=== PATIENT | male | born 1965 | race African-American/Black ===

== ENCOUNTER 2017-02-13 10:44 | Inpatient (IN) | payer BC, OTHER ==
[2017-02-13 11:00] VITALS: BMI 20.2
--- NOTE | 2017-02-13 13:42 | HP ---
CIWA Score - CIWA Score Nausea/Vomitin-No Nausea/No Vomiting Muscle Tremors: 4-Moderate,w/Arms Extend Anxiety: 4-Mod. Anxious/Guarded Agitation: 4-Moderately Restless Paroxysmal Sweats: 1-Minimal Palms Moist Orientation: 0-Oriented Tacttile Disturbances: 3-Moderate Itch/Numb/Burn Auditory Disturbances: 0-None Visual Disturbances: 0-None Headache: 0-None Present CIWA-Ar Total Score: 16 Admission ROS BHS - HPI Chief Complaint: DETOX TX FOR ALCOHOL DEPENDENC NOTE: DENIES USE OF OPIATES. PT STATES ADULTERATION OF HIS DRUGS OF CHOICE. Allergies/Adverse Reactions: Allergies Allergy/AdvReac Type Severity Reaction Status Date / Time No Known Allergies Allergy Verified 02/13/17 12:16 History of Present Illness: 51 Y/O AA/MALE WITH A HX OF ALCOHOL DEPENDENCE SEEKING DETOX TX. FIRST TIME IN TREATMENT. Exam Limitations: No Limitations - Ebola screening Have you traveled outside of the country in the last 21 days: No Have you had contact with anyone from an Ebola affected area: No Have you been sick,other than usual withdrawal symptoms: No Do you have a fever: No - Review of Systems Constitutional: Chills, Night Sweats, Changes in sleep, Unintentional Wgt. Loss EENT: reports: Blurred Vision, Tearing, Nose Congestion, Dental Problems ( MISSING TEETH) Respiratory: reports: No Symptoms reported Cardiac: reports: No Symptoms Reported GI: reports: No Symptoms Reported : reports: No Symptoms Reported Musculoskeletal: reports: No Symptoms Reported (HAND JOINTS), Joint Pain Integumentary: reports: No Symptoms Reported Neuro: reports: Numbness, Tingling, Tremors, Unsteady Gait, Dizziness Endocrine: reports: No Symptoms Reported Hematology: reports: No Symptoms Reported Psychiatric: reports: Orientated x3, Anxious Other Systems: Reviewed and Negative Patient History - Patient Medical History Hx Anemia: No Hx Asthma: No Hx Chronic Obstructive Pulmonary Disease (COPD): No Hx Cardiac Disorders: No Hx Hypertension: No Hx Hypercholesterolemia: No HX Cerebrovascular Accident: No Hx Seizures: No Hx Diabetes: No Hx Gastrointestinal Disorders: No Hx Genitourinary Disorders: No Hx Sexually Transmitted Disorders: Yes (gonorrhea) Hx Renal Disease (ESRD): No Hx Thyroid Disease: No Hx Human Immunodeficiency Virus (HIV): No (NEGATIVE HX) Hx Hepatitis C: No Hx Depression: No (BUT USES PCP) Hx Suicide Attempt: No (DENIES) Hx Bipolar Disorder: No Hx Schizophrenia: No - Patient Surgical History Past Surgical History: No Hx Neurologic Surgery: No Hx Cataract Extraction: No Hx Cardiac Surgery: No Hx Lung Surgery: No Hx Breast Surgery: No Hx Breast Biopsy: No Hx Abdominal Surgery: No Hx Appendectomy: No Hx Cholecystectomy: No Hx Genitourinary Surgery: No Hx Orthopedic Surgery: No Anesthesia Reaction: No - PPD History Previous Implant?: Yes Documented Results: Negative w/o proof Implanted On Prior R Admission?: No PPD to be Administered?: Yes - Reproductive History Patient is a Female of Child Bearing Age (11 -55 yrs old): No (MALE) - Smoking Cessation Smoking history: Current every day smoker Have you smoked in the past 12 months: Yes Aproximately how many cigarettes per day: 20 Hx Chewing Tobacco Use: No Initiated information on smoking cessation: Yes 'Breaking Loose' booklet given: 02/13/17 - Substance & Tx. History Hx Alcohol Use: Yes (COGNAC/BEER) Hx Substance Use: Yes (K2/MARIJUANA/PCP) Substance Use Type: Alcohol, Marijuana (K2) Hx Substance Use Treatment: No (STATES NEVER IN TREATMENT) - Substances Abused PCP Route: Smoking Frequency: Daily Amount used: $30 Age of first use: 14 Date of Last Use: 02/12/17 Alcohol-cognac/beer Route: Oral Frequency: Daily Amount used: 2 pts./1-6 pk. Age of first use: 14 Date of Last Use: 02/12/17 k2 Route: Smoking Frequency: Daily Amount used: $25-30 Age of first use: 41 Date of Last Use: 02/12/17 Marijuana Route: Smoking Frequency: 3-6 times per week Amount used: $10 Age of first use: 14 Date of Last Use: 02/11/17 Family Disease History - Family Disease History Family History: Denies Admission Physical Exam BHS - Vital Signs Vital Signs: Vital Signs - 24 hr 02/13/17 10:56 Temperature 97 F L Pulse Rate 74 Respiratory 20 Rate Blood Pressure 103/71 - Physical General Appearance: Yes: Moderate Distress, Thin, Irritable, Anxious HEENTM: Yes: EOMI, Normocephalic, LISS, Pharynx Normal Respiratory: Yes: Chest Non-Tender, Lungs Clear, Normal Breath Sounds, No Respiratory Distress Neck: Yes: Supple, Trachea in good position Breast: Yes: Breast Exam Deferred Cardiology: Yes: Regular Rhythm, Regular Rate, S1, S2 Abdominal: Yes: Normal Bowel Sounds, Non Tender, Flat, Soft Genitourinary: Yes: Other (N/C) Back: Yes: Within Normal Limits Musculoskeletal: Yes: full range of Motion, Gait Steady Extremities: Yes: Normal Range of Motion, Non-Tender Neurological: Yes: continuous improvement director II-XII NML intact, Fully Oriented, Alert, Motor Strength 5/5 Integumentary: Yes: Dry, Warm Lymphatic: Yes: Within Normal Limits - Diagnostic (1) Alcohol dependence with uncomplicated withdrawal Current Visit: Yes Status: Acute (2) PCP dependence Current Visit: Yes Status: Acute Cleared for Admission [facility] - Detox or Rehab [facility] Level of Care: Medically Managed Detox Regimen/Protocol: Librium [facility] Breath Alcohol Content Breath Alcohol Content: 0 Urine Drug Screen - Results Drug Screen Negative: No Urine Drug Screen Results: OPI-Opiates, PCP-Phencyclidine
[2017-02-13] MEDS ORDERED: MENTHOL/PHENOL 1 EACH UD MM PRN (13:48)
[2017-02-13] MEDS ORDERED: LOPERAMIDE HCL 2 MG CAPSULE PO PRN (13:48)
[2017-02-13] MEDS ORDERED: MAG HYDROX/AL HYDROX/SIMETH 30 ML UNIT-DOSE CUP PO PRN (13:48)
[2017-02-13] MEDS ORDERED: chlordiazePOXIDE HCL 25 MG CAPSULE PO PRN (13:48)
[2017-02-13] MEDS ORDERED: MAGNESIUM CITRATE 300 ML BOTTLE PO PRN (13:48)
[2017-02-13] MEDS ORDERED: P-EPHED 60MG/TRIPROLIDI 2.5MG TABLET PO PRN (13:48)
[2017-02-13] MEDS ORDERED: diphenhydrAMINE HCL 50 MG CAPSULE PO PRN (13:48)
[2017-02-13] MEDS ORDERED: ACETAMINOPHEN 325 MG TABLET (FP) PO PRN (13:48)
[2017-02-13] MEDS ORDERED: NICOTINE POLACRILEX 4 MG GUM BUC PRN (13:48)
[2017-02-13] MEDS ORDERED: hydrOXYzine PAMOATE 25 MG CAPSULE (FP) PO PRN (13:48)
[2017-02-13] MEDS ORDERED: IBUPROFEN 400 MG TABLET (FP) PO PRN (13:48)
[2017-02-13] MEDS ORDERED: MAGNESIUM HYDROX 2400MG/30ML ORAL SUSPENSION 30 ML CUP PO PRN (13:48)
[2017-02-13] MEDS ORDERED: guaiFENesin/D-METHORPHAN HB 10 ML UNIT-DOSE CUPS PO PRN (13:48)
[2017-02-13] MEDS ORDERED: chlordiazePOXIDE HCL 25 MG CAPSULE PO ONE (14:44)
[2017-02-13] MEDS: NICOTINE 21 MG/24 HOURS TOPICAL PATCH TD SCH (15:03)
[2017-02-13] MEDS: chlordiazePOXIDE HCL 25 MG CAPSULE PO SCH ×2 (17:52→22:08)
[2017-02-13 19:57] LABS: URINE APPEARANCE CLEAR; URINE BILIRUBIN NEGATIVE (NEGATIVE); URINE BLOOD NEGATIVE (NEGATIVE); URINE COLOR YELLOW; URINE GLUCOSE (UA) 1+ (NEGATIVE); URINE KETONE NEGATIVE (NEGATIVE); URINE LEUK ESTERASE NEGATIVE (NEGATIVE); URINE NITRITE NEGATIVE (NEGATIVE); URINE PROTEIN NEGATIVE (NEGATIVE); URINE UROBILINOGEN NEGATIVE E.U./dl (0.2-1.0)
[2017-02-13] MEDS: THIAMINE HCL 100 MG TABLET (FP) PO SCH (22:08)
[2017-02-14] MEDS: chlordiazePOXIDE HCL 25 MG CAPSULE PO SCH ×4 (06:23→22:17)
[2017-02-14] MEDS: NICOTINE 21 MG/24 HOURS TOPICAL PATCH TD SCH (10:12)
[2017-02-14] MEDS: PRENATAL VITAMINS W/ FOLIC ACID TABLET (FP) PO SCH (10:12)
[2017-02-14 10:48] LABS: MCH 34.3 pg (25.7-33.7); MCHC 32.9 g/dl (32.0-35.9); MEAN CELL VOLUME 104.3 fl (80-96); MEAN PLT VOLUME 9.3 fl (7.5-11.1); PLATELET COUNT 241 K/MM3 (134-434); RDW 14.7 % (11.9-15.9); WHITE BLOOD COUNT 6.3 K/mm3 (4.0-10.0)
[2017-02-14 11:14] LABS: SICKLE CELL SCREEN NEGATIVE (NEGATIVE)
[2017-02-14 12:05] LABS: ALBUMIN 3.5 g/dl (3.4-5.0); ALK PHOS 53 U/L (45-117); ANION GAP 10 (8-16); BILIRUBIN,TOTAL 0.3 mg/dL (0.2-1.0); CALCIUM 8.8 mg/dL (8.5-10.1); CO2 24 mmol/L (21-32); CREATININE 0.9 mg/dL (0.7-1.3); GLUCOSE,RANDOM 78 mg/dL (74-106); SGOT/AST 9 U/L (15-37); SGPT/ALT 14 U/L (12-78); TOT PROT 7.1 g/dl (6.4-8.2)
--- NOTE | 2017-02-14 13:02 | CONSULT ---
[facility] Psychiatric Consult - Data Date of interview: 02/14/17 Admission source: [facility] Identifying data: Readmission to [facility] for this 51 y/o AA male seeking detox treatment for alcohol,marijuana (K2) and phncyclidine dependence.Patient is ,father of three,homeless,unemployed and supported on SSI benefits. Substance Abuse History: - Smoking Cessation. Smoking history: Current every day smoker. Have you smoked in the past 12 months: Yes. Aproximately how many cigarettes per day: 20. Hx Chewing Tobacco Use: No. Initiated information on smoking cessation: Yes. 'Breaking Loose' booklet given: 02/13/17. - Substance & Tx. History. Hx Alcohol Use: Yes (COGNAC/BEER). Hx Substance Use: Yes (K2/ MARIJUANA/PCP). Substance Use Type: Alcohol, Marijuana (K2). Hx Substance Use Treatment: No (STATES NEVER IN TREATMENT). - Substances Abused. PCP. Route : Smoking. Frequency: Daily. Amount used: $30. Age of first use: 14. Date of Last Use: 02/12/17. Alcohol-cognac/beer. Route: Oral. Frequency: Daily. Amount used: 2 pts./1-6 pk. Age of first use: 14. Date of Last Use: . k2. Route: Smoking. Frequency: Daily. Amount used: $25-30. Age of first use: 41. Date of Last Use: 02/12/17. Marijuana. Route: Smoking. Frequency: 3-6 times per week. Amount used: $10. Age of first use: 14. Date of Last Use: 02/11/17. Confirmed by patient. Medical History: Noted past history of treatment for syphilis. Psychiatric History: Patient denies. Physical/Sexual Abuse/Trauma History: Patient denies. Additional Comment: Urine Drug Screen Results: OPI-Opiates, PCP- Phencyclidine.Noted. Mental Status Exam - Mental Status Exam Alert and Oriented to: Time, Place, Person Cognitive Function: Good Patient Appearance: Well Groomed Mood: Hopeful, Euthymic Affect: Appropriate, Normal Range Patient Behavior: Fatigued, Appropriate, Cooperative Speech Pattern: Clear Voice Loudness: Normal Thought Process: Goal Oriented Thought Disorder: Not Present Hallucinations: Denies Suicidal Ideation: Denies Homicidal Ideation: Denies Insight/Judgement: Fair Sleep: Fair Appetite: Good Muscle strength/Tone: Normal Gait/Station: Normal Psychiatric Findings - Problem List ([place] 1, 2,3) (1) Alcohol dependence with uncomplicated withdrawal Current Visit: Yes Status: Acute (2) PCP dependence Current Visit: Yes Status: Acute - Initial Treatment Plan Initial Treatment Plan: Psychoeducation.Detoxification.Observation.
--- NOTE | 2017-02-14 15:15 | PN ---
[facility] CIWA - CIWA Score Nausea/Vomitin-Mild Nausea/No Vomiting Muscle Tremors: 2 Anxiety: 3 Agitation: 1-Slight > Activity Paroxysmal Sweats: 3 Orientation: 0-Oriented Tacttile Disturbances: 2-Mild Itch/Numbness/Burn Auditory Disturbances: 3-Moderate Harsh/Frighten Visual Disturbances: 1-Very Mild Sensitivity Headache: 0-None Present CIWA-Ar Total Score: 16 S Progress Note (SOAP) Subjective: Sweating, Diarrhea, Interrupted sleep, Tremors. Objective: PT. A & O X 3. 02/14/17 15:13 Vital Signs Temperature 95.8 F L 02/14/17 13:15 Pulse Rate 66 02/14/17 13:15 Respiratory Rate 19 02/14/17 13:15 Blood Pressure 115/78 02/14/17 13:15 O2 Sat by Pulse Oximetry (%) Laboratory Last Values WBC 6.3 K/mm3 (4.0-10.0) 02/14/17 06:00 RBC 4.11 M/mm3 (4.00-5.60) 02/14/17 06:00 Hgb 14.1 GM/dL (11.7-16.9) 02/14/17 06:00 Hct 42.9 % (35.4-49) 02/14/17 06:00 MCV 104.3 fl (80-96) H 02/14/17 06:00 MCHC 32.9 g/dl (32.0-35.9) 02/14/17 06:00 RDW 14.7 % (11.9-15.9) 02/14/17 06:00 Plt Count 241 K/MM3 (134-434) 02/14/17 06:00 MPV 9.3 fl (7.5-11.1) 02/14/17 06:00 Sickle Cell Screen Negative (NEGATIVE) 02/14/17 06:00 Sodium 143 mmol/L (136-145) 02/14/17 06:00 Potassium 4.2 mmol/L (3.5-5.1) 02/14/17 06:00 Chloride 109 mmol/L (98-107) H 02/14/17 06:00 Carbon Dioxide 24 mmol/L (21-32) 02/14/17 06:00 Anion Gap 10 (8-16) 02/14/17 06:00 BUN 11 mg/dL (7-18) 02/14/17 06:00 Creatinine 0.9 mg/dL (0.7-1.3) 02/14/17 06:00 Creat Clearance w eGFR > 60 (>60) 02/14/17 06:00 Random Glucose 78 mg/dL (74-106) 02/14/17 06:00 Calcium 8.8 mg/dL (8.5-10.1) 02/14/17 06:00 Total Bilirubin 0.3 mg/dL (0.2-1.0) 02/14/17 06:00 AST 9 U/L (15-37) L 02/14/17 06:00 ALT 14 U/L (12-78) 02/14/17 06:00 Alkaline Phosphatase 53 U/L (45-117) 02/14/17 06:00 Total Protein 7.1 g/dl (6.4-8.2) 02/14/17 06:00 Albumin 3.5 g/dl (3.4-5.0) 02/14/17 06:00 Urine Color Yellow 02/13/17 19:36 Urine Appearance Clear 02/13/17 19:36 Urine pH 6.0 (5.0-8.0) 02/13/17 19:36 Ur Specific [place] 1.029 (1.001-1.035) 02/13/17 19:36 Urine Protein Negative (NEGATIVE) 02/13/17 19:36 Urine Glucose (UA) 1+ (NEGATIVE) H 02/13/17 19:36 Urine Ketones Negative (NEGATIVE) 02/13/17 19:36 Urine Blood Negative (NEGATIVE) 02/13/17 19:36 Urine Nitrite Negative (NEGATIVE) 02/13/17 19:36 Urine Bilirubin Negative (NEGATIVE) 02/13/17 19:36 Urine Urobilinogen Negative E.U./dl (0.2-1.0) 02/13/17 19:36 Ur Leukocyte Esterase Negative (NEGATIVE) 02/13/17 19:36 LABS NOTED. Assessment: 02/14/17 15:14 WITHDRAWAL SYMPTOMS. Plan: CONTINUE DETOX. ADVISED PATIENT TO FOLLOW-UP WITH [facility] / REHAB MEDICAL PROVIDER AFTER DISCHARGE FROM DETOX FOR GENERAL MEDICAL ASSESSMENT AND FOR ANY ABNORMAL ADMISSION LAB VALUES.
[2017-02-14] MEDS: THIAMINE HCL 100 MG TABLET (FP) PO SCH (22:17)
[2017-02-15] MEDS: chlordiazePOXIDE HCL 25 MG CAPSULE PO SCH ×2 (05:51→10:10)
[2017-02-15] MEDS: PRENATAL VITAMINS W/ FOLIC ACID TABLET (FP) PO SCH (10:09)
[2017-02-15] MEDS: NICOTINE 21 MG/24 HOURS TOPICAL PATCH TD SCH (10:11)
--- NOTE | 2017-02-15 10:45 | PN ---
S CIWA - CIWA Score Nausea/Vomitin Muscle Tremors: 3 Anxiety: 4-Mod. Anxious/Guarded Agitation: 3 Paroxysmal Sweats: 3 Orientation: 0-Oriented Tacttile Disturbances: 1-Very Mild Itch/Numbness Auditory Disturbances: 0-None Visual Disturbances: 0-None Headache: 1-Very Mild CIWA-Ar Total Score: 18 BHS Progress Note (SOAP) Subjective: Nausea, anxious, sweating, tremor Objective: 02/15/17 10:41 Last Vital Signs Temp Pulse Resp BP Pulse Ox 98.4 F 68 18 138/95 02/14/17 21:52 02/14/17 21:52 02/15/17 03:30 02/14/17 21:52 Laboratory Tests 02/13/17 02/14/17 02/14/17 19:36 06:00 06:00 WBC 6.3 RBC 4.11 Hgb 14.1 Hct 42.9 MCV 104.3 H MCHC 32.9 RDW 14.7 Plt Count 241 MPV 9.3 Sickle Cell Screen Negative Sodium 143 Potassium 4.2 Chloride 109 H Carbon Dioxide 24 Anion Gap 10 BUN 11 Creatinine 0.9 Creat Clearance w eGFR > 60 Random Glucose 78 Calcium 8.8 Total Bilirubin 0.3 AST 9 L ALT 14 Alkaline Phosphatase 53 Total Protein 7.1 Albumin 3.5 Urine Color Yellow Urine Appearance Clear Urine pH 6.0 Ur Specific [place] 1.029 Urine Protein Negative Urine Glucose (UA) 1+ H Urine Ketones Negative Urine Blood Negative Urine Nitrite Negative Urine Bilirubin Negative Urine Urobilinogen Negative Ur Leukocyte Esterase Negative RPR Titer 02/14/17 06:00 WBC RBC Hgb Hct MCV MCHC RDW Plt Count MPV Sickle Cell Screen Sodium Potassium Chloride Carbon Dioxide Anion Gap BUN Creatinine Creat Clearance w eGFR Random Glucose Calcium Total Bilirubin AST ALT Alkaline Phosphatase Total Protein Albumin Urine Color Urine Appearance Urine pH Ur Specific [place] Urine Protein Urine Glucose (UA) Urine Ketones Urine Blood Urine Nitrite Urine Bilirubin Urine Urobilinogen Ur Leukocyte Esterase RPR Titer Nonreactive Labs noted: UA shows glucose 1+ Assessment: 02/15/17 10:43 Withdrawal symptoms Noted with mild glycosuria but normal fasting serum glucose of 78 mg/dl Plan: Continue detox Glycosuria: encouraged to drink lots of water (at least 6-8 cups/day), repeat UA
--- NOTE | 2017-02-15 11:41 | EKG ---
Test Reason : Blood Pressure : / mmHG Vent. Rate : 063 BPM Atrial Rate : 063 BPM P-R Int : 116 ms QRS Dur : 100 ms QT Int : 404 ms P-R-T Axes : 060 063 062 degrees QTc Int : 413 ms NORMAL SINUS RHYTHM WITH SINUS ARRHYTHMIA NORMAL ECG NO PREVIOUS ECGS AVAILABLE Confirmed by OVIDIO DANIEL MD ([id number]) on 02/15/2017 11:40:50 AM Referred By: Confirmed By:OVIDIO DANIEL MD
[2017-02-15] MEDS: chlordiazePOXIDE 5 MG CAPSULE PO SCH ×2 (17:22→22:34)
[2017-02-15] MEDS: THIAMINE HCL 100 MG TABLET (FP) PO SCH (22:34)
[2017-02-16] MEDS: chlordiazePOXIDE 5 MG CAPSULE PO SCH ×2 (05:49→10:14)
[2017-02-16] MEDS: NICOTINE 21 MG/24 HOURS TOPICAL PATCH TD SCH (10:14)
[2017-02-16] MEDS: PRENATAL VITAMINS W/ FOLIC ACID TABLET (FP) PO SCH (10:14)
--- NOTE | 2017-02-16 13:17 | PN ---
BHS Progress Note (SOAP) Subjective: Sweating,interrupted sleep,restless Objective: 02/16/17 13:16 Vital Signs - 8 hr 02/16/17 02/16/17 06:22 09:44 Temperature 96.1 F L 97.1 F L Pulse Rate 64 69 Respiratory 16 18 Rate Blood Pressure 116/76 130/79 Laboratory Tests 02/13/17 02/14/17 02/14/17 19:36 06:00 06:00 WBC 6.3 RBC 4.11 Hgb 14.1 Hct 42.9 MCV 104.3 H MCHC 32.9 RDW 14.7 Plt Count 241 MPV 9.3 Sickle Cell Screen Negative Sodium 143 Potassium 4.2 Chloride 109 H Carbon Dioxide 24 Anion Gap 10 BUN 11 Creatinine 0.9 Creat Clearance w eGFR > 60 Random Glucose 78 Calcium 8.8 Total Bilirubin 0.3 AST 9 L ALT 14 Alkaline Phosphatase 53 Total Protein 7.1 Albumin 3.5 Urine Color Yellow Urine Appearance Clear Urine pH 6.0 Ur Specific [place] 1.029 Urine Protein Negative Urine Glucose (UA) 1+ H Urine Ketones Negative Urine Blood Negative Urine Nitrite Negative Urine Bilirubin Negative Urine Urobilinogen Negative Ur Leukocyte Esterase Negative RPR Titer 02/14/17 06:00 WBC RBC Hgb Hct MCV MCHC RDW Plt Count MPV Sickle Cell Screen Sodium Potassium Chloride Carbon Dioxide Anion Gap BUN Creatinine Creat Clearance w eGFR Random Glucose Calcium Total Bilirubin AST ALT Alkaline Phosphatase Total Protein Albumin Urine Color Urine Appearance Urine pH Ur Specific [place] Urine Protein Urine Glucose (UA) Urine Ketones Urine Blood Urine Nitrite Urine Bilirubin Urine Urobilinogen Ur Leukocyte Esterase RPR Titer Nonreactive labs noted Assessment: 02/16/17 13:16 Withdrawal sx. Plan: Continue detox
[2017-02-16 15:41] LABS: URINE APPEARANCE CLEAR; URINE BILIRUBIN NEGATIVE (NEGATIVE); URINE BLOOD NEGATIVE (NEGATIVE); URINE COLOR YELLOW; URINE GLUCOSE (UA) NEGATIVE (NEGATIVE); URINE KETONE NEGATIVE (NEGATIVE); URINE LEUK ESTERASE NEGATIVE (NEGATIVE); URINE NITRITE NEGATIVE (NEGATIVE); URINE PROTEIN NEGATIVE (NEGATIVE); URINE UROBILINOGEN NEGATIVE E.U./dl (0.2-1.0)
[2017-02-16] MEDS: chlordiazePOXIDE HCL 10 MG CAPSULE PO SCH ×2 (17:32→23:18)
[2017-02-16] MEDS: THIAMINE HCL 100 MG TABLET (FP) PO SCH (23:18)
[2017-02-17] MEDS: chlordiazePOXIDE HCL 10 MG CAPSULE PO SCH ×2 (06:09→11:02)
--- NOTE | 2017-02-17 10:54 | DS ---
[facility] Detox Discharge Summary Admission Date: 02/13/17 Discharge Date: 02/17/17 - History Present History: Alcohol Dependence, Pcp Dependence Additional Comments: DETOX COMPLETED.ALERT O X 3. NAD. Pertinent Past History: UNREMARKABLE - Physical Exam Results Vital Signs: Vital Signs Temperature 96.0 F L 02/17/17 06:17 Pulse Rate 86 02/17/17 06:17 Respiratory Rate 16 02/17/17 06:17 Blood Pressure 112/72 02/17/17 06:17 O2 Sat by Pulse Oximetry (%) Pertinent Admission Physical Exam Findings: WITHDRAWAL SX Laboratory Last Values WBC 6.3 K/mm3 (4.0-10.0) 02/14/17 06:00 RBC 4.11 M/mm3 (4.00-5.60) 02/14/17 06:00 Hgb 14.1 GM/dL (11.7-16.9) 02/14/17 06:00 Hct 42.9 % (35.4-49) 02/14/17 06:00 MCV 104.3 fl (80-96) H 02/14/17 06:00 MCHC 32.9 g/dl (32.0-35.9) 02/14/17 06:00 RDW 14.7 % (11.9-15.9) 02/14/17 06:00 Plt Count 241 K/MM3 (134-434) 02/14/17 06:00 MPV 9.3 fl (7.5-11.1) 02/14/17 06:00 Sickle Cell Screen Negative (NEGATIVE) 02/14/17 06:00 Sodium 143 mmol/L (136-145) 02/14/17 06:00 Potassium 4.2 mmol/L (3.5-5.1) 02/14/17 06:00 Chloride 109 mmol/L (98-107) H 02/14/17 06:00 Carbon Dioxide 24 mmol/L (21-32) 02/14/17 06:00 Anion Gap 10 (8-16) 02/14/17 06:00 BUN 11 mg/dL (7-18) 02/14/17 06:00 Creatinine 0.9 mg/dL (0.7-1.3) 02/14/17 06:00 Creat Clearance w eGFR > 60 (>60) 02/14/17 06:00 Random Glucose 78 mg/dL (74-106) 02/14/17 06:00 Calcium 8.8 mg/dL (8.5-10.1) 02/14/17 06:00 Total Bilirubin 0.3 mg/dL (0.2-1.0) 02/14/17 06:00 AST 9 U/L (15-37) L 02/14/17 06:00 ALT 14 U/L (12-78) 02/14/17 06:00 Alkaline Phosphatase 53 U/L (45-117) 02/14/17 06:00 Total Protein 7.1 g/dl (6.4-8.2) 02/14/17 06:00 Albumin 3.5 g/dl (3.4-5.0) 02/14/17 06:00 Urine Color Yellow 02/16/17 13:00 Urine Appearance Clear 02/16/17 13:00 Urine pH 6.0 (5.0-8.0) 02/16/17 13:00 Ur Specific [place] 1.020 (1.001-1.035) 02/16/17 13:00 Urine Protein Negative (NEGATIVE) 02/16/17 13:00 Urine Glucose (UA) Negative (NEGATIVE) 02/16/17 13:00 Urine Ketones Negative (NEGATIVE) 02/16/17 13:00 Urine Blood Negative (NEGATIVE) 02/16/17 13:00 Urine Nitrite Negative (NEGATIVE) 02/16/17 13:00 Urine Bilirubin Negative (NEGATIVE) 02/16/17 13:00 Urine Urobilinogen Negative E.U./dl (0.2-1.0) 02/16/17 13:00 Ur Leukocyte Esterase Negative (NEGATIVE) 02/16/17 13:00 RPR Titer Nonreactive (NONREACTIVE) 02/14/17 06:00 Hepatitis C Antibody 0.2 s/co ratio (0.0-0.9) 02/13/17 13:00 - Treatment Hospital Course: Detox Protocol Followed, Detoxed Safely, Responded well, Discharged Condition Good, Rehab Referral Accepted Patient has Accepted a Rehab Referral to: [facility] [place] - Medication Discharge Medications: Ambulatory Orders NK [No Known Home Medication] 02/13/17 - Diagnosis (1) Alcohol dependence with uncomplicated withdrawal Current Visit: Yes Status: Acute (2) PCP dependence Current Visit: Yes Status: Acute - AMA Did Patient Leave Against Medical Advice: No
[2017-02-17] MEDS: NICOTINE 21 MG/24 HOURS TOPICAL PATCH TD SCH (11:02)
[2017-02-17] MEDS: PRENATAL VITAMINS W/ FOLIC ACID TABLET (FP) PO SCH (11:02)
[2017-02-17 13:36] VITALS: BP 110/75; PULSE 62; TEMP 95.6
== END 2017-02-17 12:12 | disposition other institution (70) | DRG 775 ==
LOC: YASAS 10:44 → Y3N 13:00
PROVIDERS: ADMIT Internal Medicine Addiction Medicine; ATTEND Internal Medicine Addiction Medicine
PROC: HZ2ZZZZ Detoxification Services for Substance Abuse Treatment (ICD-10-PCS; principal; 2017-02-17)
DX: F10.230 Alcohol dependence with withdrawal, uncomplicated (principal); F16.20 Hallucinogen dependence, uncomplicated; F17.210 Nicotine dependence, cigarettes, uncomplicated
CPT/HCPCS: 36415; 80053; 81003; 85027; 85660; 86593; 93005; 93010

== ENCOUNTER 2017-02-17 13:53 | Inpatient (IN) | payer BC, OTHER ==
[2017-02-17] MEDS ORDERED: MAGNESIUM HYDROX 2400MG/30ML ORAL SUSPENSION 30 ML CUP PO PRN (14:23)
[2017-02-17] MEDS ORDERED: MAG HYDROX/AL HYDROX/SIMETH 30 ML UNIT-DOSE CUP PO PRN (14:23)
[2017-02-17] MEDS ORDERED: MAGNESIUM CITRATE 300 ML BOTTLE PO PRN (14:23)
[2017-02-17] MEDS ORDERED: guaiFENesin/D-METHORPHAN HB 10 ML UNIT-DOSE CUPS PO PRN (14:23)
[2017-02-17] MEDS ORDERED: MENTHOL/PHENOL 1 EACH UD MM PRN (14:23)
[2017-02-17] MEDS ORDERED: P-EPHED 60MG/TRIPROLIDI 2.5MG TABLET PO PRN (14:23)
[2017-02-17] MEDS ORDERED: NICOTINE POLACRILEX 4 MG GUM BUC PRN (14:23)
[2017-02-17] MEDS ORDERED: IBUPROFEN 400 MG TABLET (FP) PO PRN (14:23)
[2017-02-17] MEDS ORDERED: ACETAMINOPHEN 325 MG TABLET (FP) PO PRN (14:23)
[2017-02-17] MEDS ORDERED: LOPERAMIDE HCL 2 MG CAPSULE PO PRN (14:23)
--- NOTE | 2017-02-17 15:33 | HP ---
Psychiatrist Admission - Data Date of interview: 02/17/17 Admission source: 3N Identifying data: This is the first 5N inpatient rehabilitation admission for this 51 year old black male, father of 3, currently homeless and unemployed on SSI. Medical History: treated for syphilisis, smokes cigaretts 1 PPD. Psychiatric History: Patient denies history of psychiatric treatment, states that sometimes he feelssad and depressed due to his current life stressors, ( being homeles, from family). Vital Signs: Vital Signs - 24 hr 02/17/17 15:18 Temperature 97.9 F Pulse Rate 81 Respiratory 18 Rate Blood Pressure 136/77 Allergies/Adverse Reactions: Allergies Allergy/AdvReac Type Severity Reaction Status Date / Time No Known Allergies Allergy Verified 02/17/17 13:59 Date of last physical exam: 02/13/17 Concur with the findings of this exam: Yes - Substance Abuse/Tx History Hx Alcohol Use: Yes (beer/vodka 2 pints daily use) Hx Substance Use: Yes (PCP daily use, K2 daily use) Substance Use Type: Marijuana ($20 daily,) Hx Substance Use Treatment: Yes ([facility] in 2011) - Admission Criteria Previous failed treatment: Yes Poor recovery environment: Yes Comorbidities: No Lacks judgement: Yes Mental Status Exam - Mental Status Exam Alert and Oriented to: Time, Place, Person Cognitive Function: Good Patient Appearance: Well Groomed Mood: Sad Affect: Appropriate, Mood Congruent Patient Behavior: Appropriate, Cooperative Speech Pattern: Clear, Appropriate Voice Loudness: Normal Thought Process: Intact, Goal Oriented Thought Disorder: Not Present Hallucinations: Denies Suicidal Ideation: Denies Homicidal Ideation: Denies Insight/Judgement: Fair Sleep: Well Appetite: Good, Weight loss (20 lbs over 6 months) Muscle strength/Tone: Normal Gait/Station: Normal Psychiatric Findings - Problem List ([place] 1, 2,3) (1) PCP dependence Current Visit: No Status: Acute (2) Alcohol dependence Current Visit: Yes Status: Acute (3) Cannabis dependence Current Visit: Yes Status: Acute (4) Adjustment disorder Current Visit: Yes Status: Acute - Initial Treatment Plan Initial Treatment Plan: Supportive therapy provided, will monitor progress as needed.
--- NOTE | 2017-02-17 16:31 | HP ---
[facility] Rehab Assess/Revision - Admission History Admitted to Rehab from: [facility] Date of Admission to Rehab: 02/17/17 - Vital signs Vital Signs: Vital Signs Period Temp Pulse Resp BP Sys/Hanna Pulse Ox Last 24 Hr 97.9 F 81 18 136/77 - Findings Detox History & Physical reviewed: Yes Concur with findings: Yes Comments/Additional Findings: transferred from detox to rehab admission as per protocol
[2017-02-17] MEDS: THIAMINE HCL 100 MG TABLET (FP) PO SCH (21:47)
[2017-02-18] MEDS: NICOTINE 21 MG/24 HOURS TOPICAL PATCH TD SCH (09:50)
[2017-02-18] MEDS: PRENATAL VITAMINS W/ FOLIC ACID TABLET (FP) PO SCH (09:50)
[2017-02-18] MEDS: THIAMINE HCL 100 MG TABLET (FP) PO SCH (21:42)
[2017-02-19] MEDS: PRENATAL VITAMINS W/ FOLIC ACID TABLET (FP) PO SCH (10:04)
[2017-02-19] MEDS: NICOTINE 21 MG/24 HOURS TOPICAL PATCH TD SCH (10:04)
[2017-02-19] MEDS: THIAMINE HCL 100 MG TABLET (FP) PO SCH (21:25)
[2017-02-19] MEDS: diphenhydrAMINE HCL 50 MG CAPSULE PO PRN (21:25)
[2017-02-19] MEDS: TETRAHYDROZOLINE HCL 1 DROP DROPS OU PRN (22:47)
[2017-02-20] MEDS: PRENATAL VITAMINS W/ FOLIC ACID TABLET (FP) PO SCH (09:46)
[2017-02-20] MEDS: NICOTINE 21 MG/24 HOURS TOPICAL PATCH TD SCH (09:46)
[2017-02-20] MEDS: THIAMINE HCL 100 MG TABLET (FP) PO SCH (21:29)
[2017-02-20] MEDS: TETRAHYDROZOLINE HCL 1 DROP DROPS OU PRN (21:30)
[2017-02-20] MEDS: diphenhydrAMINE HCL 50 MG CAPSULE PO PRN (21:39)
[2017-02-21] MEDS: NICOTINE 21 MG/24 HOURS TOPICAL PATCH TD SCH (09:53)
[2017-02-21] MEDS: PRENATAL VITAMINS W/ FOLIC ACID TABLET (FP) PO SCH (09:53)
[2017-02-21] MEDS: THIAMINE HCL 100 MG TABLET (FP) PO SCH (21:43)
[2017-02-21] MEDS: diphenhydrAMINE HCL 50 MG CAPSULE PO PRN (21:54)
[2017-02-22] MEDS: PRENATAL VITAMINS W/ FOLIC ACID TABLET (FP) PO SCH (09:48)
[2017-02-22] MEDS: NICOTINE 21 MG/24 HOURS TOPICAL PATCH TD SCH (09:48)
[2017-02-22] MEDS: THIAMINE HCL 100 MG TABLET (FP) PO SCH (21:38)
[2017-02-22] MEDS: diphenhydrAMINE HCL 50 MG CAPSULE PO PRN (21:38)
[2017-02-23] MEDS: NICOTINE 21 MG/24 HOURS TOPICAL PATCH TD SCH (10:07)
[2017-02-23] MEDS: PRENATAL VITAMINS W/ FOLIC ACID TABLET (FP) PO SCH (10:07)
[2017-02-23] MEDS: diphenhydrAMINE HCL 50 MG CAPSULE PO PRN (21:19)
[2017-02-23] MEDS: THIAMINE HCL 100 MG TABLET (FP) PO SCH (21:19)
[2017-02-23] MEDS: TETRAHYDROZOLINE HCL 1 DROP DROPS OU PRN (21:20)
[2017-02-24] MEDS: PRENATAL VITAMINS W/ FOLIC ACID TABLET (FP) PO SCH (09:39)
[2017-02-24] MEDS: NICOTINE 21 MG/24 HOURS TOPICAL PATCH TD SCH (09:40)
[2017-02-24] MEDS: ARTIFICIAL TEARS (POLYVINYL ALCOHOL 1.4%) OPTH DROPS OU SCH ×2 (14:50→21:03)
[2017-02-24] MEDS: THIAMINE HCL 100 MG TABLET (FP) PO SCH (21:02)
[2017-02-24] MEDS: diphenhydrAMINE HCL 50 MG CAPSULE PO PRN (21:02)
[2017-02-25] MEDS: ARTIFICIAL TEARS (POLYVINYL ALCOHOL 1.4%) OPTH DROPS OU SCH ×3 (07:00→21:05)
[2017-02-25] MEDS: NICOTINE 21 MG/24 HOURS TOPICAL PATCH TD SCH (09:55)
[2017-02-25] MEDS: PRENATAL VITAMINS W/ FOLIC ACID TABLET (FP) PO SCH (09:55)
[2017-02-25] MEDS: diphenhydrAMINE HCL 50 MG CAPSULE PO PRN (21:05)
[2017-02-25] MEDS: THIAMINE HCL 100 MG TABLET (FP) PO SCH (21:05)
[2017-02-26] MEDS: ARTIFICIAL TEARS (POLYVINYL ALCOHOL 1.4%) OPTH DROPS OU SCH ×3 (06:41→21:40)
[2017-02-26] MEDS: PRENATAL VITAMINS W/ FOLIC ACID TABLET (FP) PO SCH (09:51)
[2017-02-26] MEDS: NICOTINE 21 MG/24 HOURS TOPICAL PATCH TD SCH (09:51)
--- NOTE | 2017-02-26 14:57 | PN ---
Psychiatric Progress Note Vital Signs: Vital Signs Period Temp Pulse Resp BP Sys/Hanna Pulse Ox Last 24 Hr 97.3 F 64 18-18 138/84 Date of Session: 02/26/17 Chief Complaint:: "insomnia' HPI: Patient is addressing PCP, cannabis dependence comorbid adjustment disorder. ROS: WNL Current Medications: Active Medications Generic Name Dose Route Start Last Admin Trade Name Freq PRN Reason Stop Dose Admin Acetaminophen 650 mg 02/17/17 14:23 Tylenol - PO Q4H PRN FEVER OR PAIN Al Hydroxide/Mg Hydroxide 30 ml 02/17/17 14:23 Mylanta Oral Suspension - PO Q6H PRN DYSPEPSIA Artificial Tears 1 drop 02/24/17 14:00 02/26/17 06:41 Artificial Tears OU Not Given TID SHILOH Diphenhydramine HCl 50 mg 02/17/17 14:23 02/25/17 21:05 Benadryl - PO 50 mg HSMR1 PRN Administration FOR ITCHING Eucalyptus/Menthol/Phenol/Sorbitol 1 each 02/17/17 14:23 Cepastat Lozenge - MM Q4H PRN SORE THROAT Guaifenesin 10 ml 02/17/17 14:23 Robitussin Dm - PO Q6H PRN COUGH Ibuprofen 400 mg 02/17/17 14:23 Motrin - PO Q6H PRN PAIN Loperamide HCl 4 mg 02/17/17 14:23 Imodium - PO Q6H PRN DIARRHEA Magnesium Hydroxide 30 ml 02/17/17 14:23 Milk Of Magnesia - PO DAILY PRN CONSTIPATION Nicotine 21 mg 02/18/17 10:00 02/26/17 09:51 Nicoderm Patch - TD Not Given DAILY SHILOH Nicotine Polacrilex 4 mg 02/17/17 14:23 Nicorette Gum - BUC Q2H PRN NICOTINE REPLACEMENT RX Multivit/Folic Acid/Iron 1 tab 02/18/17 10:00 02/26/17 09:51 Vitamins (Sjr) - PO 1 tab DAILY SHILOH Administration Pseudoephedrine/Triprolidine 1 combo 02/17/17 14:23 Actifed - PO TID PRN NASAL CONGESTION Thiamine HCl 100 mg 02/17/17 22:00 02/25/17 21:05 Vitamin B1 - PO 100 mg HS SHILOH Administration Current Side Effect: No Lab tests ordered: No Lab tests reviewed: Yes Provider note:: Patient nataliya spoke about his interpersonal issues(being lonely , awy from his famly, homeless) he reports that he has a difficult time during day time reports has been feeling fatigued,low energy, unable to sleep well , Benadryl not effective, discussed indications/properties of Belsomra patient agreed to start, will aad medication and continue to monitor progress. Supportive therapy has been provided. Total face to face time:: 35 Mental Status Exam - Mental Status Exam Alert and Oriented to: Time, Place, Person Cognitive Function: Good Patient Appearance: Well Groomed Mood: Sad Patient Behavior: Appropriate, Cooperative Speech Pattern: Appropriate Voice Loudness: Normal Thought Process: Intact, Goal Oriented Thought Disorder: Not Present Hallucinations: Denies Suicidal Ideation: Denies Homicidal Ideation: Denies Insight/Judgement: Fair Sleep: Poorly, Difficulty falling asleep Appetite: Good Muscle strength/Tone: Normal Gait/Station: Normal Psychiatric Treatment Plan - Problem List (1) PCP dependence Current Visit: No (2) Alcohol dependence Current Visit: Yes (3) Cannabis dependence Current Visit: Yes (4) Adjustment disorder Current Visit: Yes (5) Insomnia Current Visit: Yes
[2017-02-26] MEDS: THIAMINE HCL 100 MG TABLET (FP) PO SCH (21:39)
[2017-02-26] MEDS: SUVOREXANT 10 MG TABLET PO SCH (21:41)
[2017-02-27] MEDS: ARTIFICIAL TEARS (POLYVINYL ALCOHOL 1.4%) OPTH DROPS OU SCH ×3 (06:23→21:09)
[2017-02-27] MEDS: PRENATAL VITAMINS W/ FOLIC ACID TABLET (FP) PO SCH (10:02)
[2017-02-27] MEDS: NICOTINE 21 MG/24 HOURS TOPICAL PATCH TD SCH (10:03)
[2017-02-27] MEDS: SUVOREXANT 10 MG TABLET PO SCH (21:09)
[2017-02-27] MEDS: THIAMINE HCL 100 MG TABLET (FP) PO SCH (21:09)
[2017-02-28] MEDS: ARTIFICIAL TEARS (POLYVINYL ALCOHOL 1.4%) OPTH DROPS OU SCH ×3 (06:53→21:18)
[2017-02-28] MEDS: PRENATAL VITAMINS W/ FOLIC ACID TABLET (FP) PO SCH (09:50)
[2017-02-28] MEDS: NICOTINE 21 MG/24 HOURS TOPICAL PATCH TD SCH (09:50)
[2017-02-28] MEDS: THIAMINE HCL 100 MG TABLET (FP) PO SCH (21:17)
[2017-02-28] MEDS: SUVOREXANT 10 MG TABLET PO SCH (21:17)
[2017-03-01] MEDS: ARTIFICIAL TEARS (POLYVINYL ALCOHOL 1.4%) OPTH DROPS OU SCH ×3 (07:05→21:38)
[2017-03-01] MEDS: PRENATAL VITAMINS W/ FOLIC ACID TABLET (FP) PO SCH (09:58)
[2017-03-01] MEDS: NICOTINE 21 MG/24 HOURS TOPICAL PATCH TD SCH (09:59)
[2017-03-01] MEDS: SUVOREXANT 10 MG TABLET PO SCH (21:37)
[2017-03-01] MEDS: THIAMINE HCL 100 MG TABLET (FP) PO SCH (21:37)
[2017-03-02] MEDS: ARTIFICIAL TEARS (POLYVINYL ALCOHOL 1.4%) OPTH DROPS OU SCH ×3 (06:50→21:07)
[2017-03-02] MEDS: PRENATAL VITAMINS W/ FOLIC ACID TABLET (FP) PO SCH (09:56)
[2017-03-02] MEDS: NICOTINE 21 MG/24 HOURS TOPICAL PATCH TD SCH (09:56)
[2017-03-02] MEDS: SUVOREXANT 10 MG TABLET PO SCH (21:07)
[2017-03-02] MEDS: THIAMINE HCL 100 MG TABLET (FP) PO SCH (21:07)
[2017-03-03] MEDS: ARTIFICIAL TEARS (POLYVINYL ALCOHOL 1.4%) OPTH DROPS OU SCH ×3 (06:50→21:13)
[2017-03-03] MEDS: NICOTINE 21 MG/24 HOURS TOPICAL PATCH TD SCH (09:52)
[2017-03-03] MEDS: PRENATAL VITAMINS W/ FOLIC ACID TABLET (FP) PO SCH (09:52)
[2017-03-03] MEDS: THIAMINE HCL 100 MG TABLET (FP) PO SCH (21:13)
[2017-03-03] MEDS: SUVOREXANT 10 MG TABLET PO SCH (21:13)
[2017-03-04] MEDS: ARTIFICIAL TEARS (POLYVINYL ALCOHOL 1.4%) OPTH DROPS OU SCH ×3 (06:52→21:49)
[2017-03-04] MEDS: PRENATAL VITAMINS W/ FOLIC ACID TABLET (FP) PO SCH (10:04)
[2017-03-04] MEDS: NICOTINE 21 MG/24 HOURS TOPICAL PATCH TD SCH (10:04)
[2017-03-04] MEDS: THIAMINE HCL 100 MG TABLET (FP) PO SCH (21:49)
[2017-03-04] MEDS: SUVOREXANT 10 MG TABLET PO SCH (21:50)
[2017-03-05] MEDS: ARTIFICIAL TEARS (POLYVINYL ALCOHOL 1.4%) OPTH DROPS OU SCH ×3 (06:29→21:15)
[2017-03-05] MEDS: NICOTINE 21 MG/24 HOURS TOPICAL PATCH TD SCH (10:06)
[2017-03-05] MEDS: PRENATAL VITAMINS W/ FOLIC ACID TABLET (FP) PO SCH (10:06)
[2017-03-05] MEDS: diphenhydrAMINE HCL 50 MG CAPSULE PO PRN (21:15)
[2017-03-05] MEDS: THIAMINE HCL 100 MG TABLET (FP) PO SCH (21:15)
[2017-03-06] MEDS: ARTIFICIAL TEARS (POLYVINYL ALCOHOL 1.4%) OPTH DROPS OU SCH ×3 (06:22→21:13)
[2017-03-06] MEDS: NICOTINE 21 MG/24 HOURS TOPICAL PATCH TD SCH (09:48)
[2017-03-06] MEDS: PRENATAL VITAMINS W/ FOLIC ACID TABLET (FP) PO SCH (09:48)
[2017-03-06] MEDS: THIAMINE HCL 100 MG TABLET (FP) PO SCH (21:13)
[2017-03-06] MEDS: diphenhydrAMINE HCL 50 MG CAPSULE PO PRN (21:13)
[2017-03-07] MEDS: ARTIFICIAL TEARS (POLYVINYL ALCOHOL 1.4%) OPTH DROPS OU SCH ×3 (06:35→21:20)
[2017-03-07] MEDS: PRENATAL VITAMINS W/ FOLIC ACID TABLET (FP) PO SCH (09:37)
[2017-03-07] MEDS: NICOTINE 21 MG/24 HOURS TOPICAL PATCH TD SCH (09:37)
[2017-03-07] MEDS: diphenhydrAMINE HCL 50 MG CAPSULE PO PRN (21:20)
[2017-03-07] MEDS: THIAMINE HCL 100 MG TABLET (FP) PO SCH (21:20)
[2017-03-08] MEDS: ARTIFICIAL TEARS (POLYVINYL ALCOHOL 1.4%) OPTH DROPS OU SCH ×3 (06:08→21:20)
[2017-03-08] MEDS: PRENATAL VITAMINS W/ FOLIC ACID TABLET (FP) PO SCH (09:48)
[2017-03-08] MEDS: NICOTINE 21 MG/24 HOURS TOPICAL PATCH TD SCH (09:48)
[2017-03-08] MEDS: diphenhydrAMINE HCL 50 MG CAPSULE PO PRN (21:20)
[2017-03-08] MEDS: THIAMINE HCL 100 MG TABLET (FP) PO SCH (21:20)
[2017-03-09] MEDS: ARTIFICIAL TEARS (POLYVINYL ALCOHOL 1.4%) OPTH DROPS OU SCH ×3 (06:55→21:09)
[2017-03-09] MEDS: PRENATAL VITAMINS W/ FOLIC ACID TABLET (FP) PO SCH (10:09)
[2017-03-09] MEDS: NICOTINE 21 MG/24 HOURS TOPICAL PATCH TD SCH (10:09)
[2017-03-09] MEDS: THIAMINE HCL 100 MG TABLET (FP) PO SCH (21:08)
[2017-03-09] MEDS: diphenhydrAMINE HCL 50 MG CAPSULE PO PRN (21:09)
[2017-03-10] MEDS: ARTIFICIAL TEARS (POLYVINYL ALCOHOL 1.4%) OPTH DROPS OU SCH ×3 (06:40→21:10)
[2017-03-10] MEDS: PRENATAL VITAMINS W/ FOLIC ACID TABLET (FP) PO SCH (09:48)
[2017-03-10] MEDS: NICOTINE 21 MG/24 HOURS TOPICAL PATCH TD SCH (09:48)
[2017-03-10] MEDS: diphenhydrAMINE HCL 50 MG CAPSULE PO PRN (21:10)
[2017-03-10] MEDS: THIAMINE HCL 100 MG TABLET (FP) PO SCH (21:10)
[2017-03-11] MEDS: ARTIFICIAL TEARS (POLYVINYL ALCOHOL 1.4%) OPTH DROPS OU SCH ×3 (06:14→21:10)
[2017-03-11] MEDS: PRENATAL VITAMINS W/ FOLIC ACID TABLET (FP) PO SCH (10:43)
[2017-03-11] MEDS: NICOTINE 21 MG/24 HOURS TOPICAL PATCH TD SCH (10:43)
[2017-03-11] MEDS: diphenhydrAMINE HCL 50 MG CAPSULE PO PRN (21:10)
[2017-03-11] MEDS: THIAMINE HCL 100 MG TABLET (FP) PO SCH (21:10)
[2017-03-12] MEDS: ARTIFICIAL TEARS (POLYVINYL ALCOHOL 1.4%) OPTH DROPS OU SCH ×3 (06:36→21:15)
[2017-03-12] MEDS: PRENATAL VITAMINS W/ FOLIC ACID TABLET (FP) PO SCH (10:19)
[2017-03-12] MEDS: NICOTINE 21 MG/24 HOURS TOPICAL PATCH TD SCH (10:20)
[2017-03-12] MEDS: THIAMINE HCL 100 MG TABLET (FP) PO SCH (21:14)
[2017-03-12] MEDS: diphenhydrAMINE HCL 50 MG CAPSULE PO PRN (21:14)
[2017-03-13] MEDS: ARTIFICIAL TEARS (POLYVINYL ALCOHOL 1.4%) OPTH DROPS OU SCH ×3 (06:09→21:27)
[2017-03-13] MEDS: PRENATAL VITAMINS W/ FOLIC ACID TABLET (FP) PO SCH (09:37)
[2017-03-13] MEDS: NICOTINE 21 MG/24 HOURS TOPICAL PATCH TD SCH (09:37)
[2017-03-13] MEDS: diphenhydrAMINE HCL 50 MG CAPSULE PO PRN (21:27)
[2017-03-13] MEDS: THIAMINE HCL 100 MG TABLET (FP) PO SCH (21:27)
[2017-03-14] MEDS: ARTIFICIAL TEARS (POLYVINYL ALCOHOL 1.4%) OPTH DROPS OU SCH ×3 (06:45→21:11)
[2017-03-14] MEDS: PRENATAL VITAMINS W/ FOLIC ACID TABLET (FP) PO SCH (10:15)
[2017-03-14] MEDS: NICOTINE 21 MG/24 HOURS TOPICAL PATCH TD SCH (10:16)
[2017-03-14] MEDS: diphenhydrAMINE HCL 50 MG CAPSULE PO PRN (21:11)
[2017-03-14] MEDS: THIAMINE HCL 100 MG TABLET (FP) PO SCH (21:11)
[2017-03-15] MEDS: ARTIFICIAL TEARS (POLYVINYL ALCOHOL 1.4%) OPTH DROPS OU SCH ×3 (07:01→21:52)
[2017-03-15 07:07] VITALS: PULSE 79
[2017-03-15] MEDS: PRENATAL VITAMINS W/ FOLIC ACID TABLET (FP) PO SCH (10:12)
[2017-03-15] MEDS: NICOTINE 21 MG/24 HOURS TOPICAL PATCH TD SCH (10:13)
[2017-03-15] MEDS: THIAMINE HCL 100 MG TABLET (FP) PO SCH (21:14)
[2017-03-15] MEDS: diphenhydrAMINE HCL 50 MG CAPSULE PO PRN (21:14)
[2017-03-16] MEDS: ARTIFICIAL TEARS (POLYVINYL ALCOHOL 1.4%) OPTH DROPS OU SCH (06:20)
[2017-03-16 06:53] VITALS: BP 116/78; TEMP 97.3
--- NOTE | 2017-03-16 09:58 | PN ---
Psychiatric Progress Note Vital Signs: Vital Signs Period Temp Pulse Resp BP Sys/Hanna Pulse Ox Last 24 Hr 97.3 F 79 18-18 116/78 Date of Session: 03/16/17 Chief Complaint:: discharge visit HPI: Patient is addressing PCP, cannabis dependence comorbid adjustment disorder. ROS: WNL Current Medications: Active Medications Generic Name Dose Route Start Last Admin Trade Name Freq PRN Reason Stop Dose Admin Acetaminophen 650 mg 02/17/17 14:23 Tylenol - PO Q4H PRN FEVER OR PAIN Al Hydroxide/Mg Hydroxide 30 ml 02/17/17 14:23 Mylanta Oral Suspension - PO Q6H PRN DYSPEPSIA Artificial Tears 1 drop 02/24/17 14:00 03/16/17 06:20 Artificial Tears OU Not Given TID SHILOH Diphenhydramine HCl 50 mg 02/17/17 14:23 03/15/17 21:14 Benadryl - PO 50 mg HSMR1 PRN Administration FOR ITCHING Eucalyptus/Menthol/Phenol/Sorbitol 1 each 02/17/17 14:23 Cepastat Lozenge - MM Q4H PRN SORE THROAT Guaifenesin 10 ml 02/17/17 14:23 Robitussin Dm - PO Q6H PRN COUGH Ibuprofen 400 mg 02/17/17 14:23 Motrin - PO Q6H PRN PAIN Loperamide HCl 4 mg 02/17/17 14:23 Imodium - PO Q6H PRN DIARRHEA Magnesium Hydroxide 30 ml 02/17/17 14:23 Milk Of Magnesia - PO DAILY PRN CONSTIPATION Nicotine 21 mg 02/18/17 10:00 03/15/17 10:13 Nicoderm Patch - TD Not Given DAILY SHILOH Nicotine Polacrilex 4 mg 02/17/17 14:23 Nicorette Gum - BUC Q2H PRN NICOTINE REPLACEMENT RX Multivit/Folic Acid/Iron 1 tab 02/18/17 10:00 03/15/17 10:12 Vitamins (Sjr) - PO 1 tab DAILY SHILOH Administration Pseudoephedrine/Triprolidine 1 combo 02/17/17 14:23 Actifed - PO TID PRN NASAL CONGESTION Thiamine HCl 100 mg 02/17/17 22:00 03/15/17 21:14 Vitamin B1 - PO 100 mg HS SHILOH Administration Current Side Effect: No Lab tests ordered: No Lab tests reviewed: Yes Provider note:: Patient has completed today his treatment and met his goals, will continue to address his issues at [facility]. He gained insights into his problems and motivated to continue to maintain abstinence, patient understands the importance of changing attitude for the utilization of supports to prevent relapses. Patient is stable for tdischarge today. Total face to face time:: 30 Mental Status Exam - Mental Status Exam Alert and Oriented to: Time, Place, Person Cognitive Function: Good Patient Appearance: Well Groomed Mood: Hopeful Affect: Appropriate, Mood Congruent Patient Behavior: Appropriate, Cooperative Speech Pattern: Clear, Appropriate Voice Loudness: Normal Thought Process: Intact, Goal Oriented Thought Disorder: Not Present Hallucinations: Denies Suicidal Ideation: Denies Homicidal Ideation: Denies Insight/Judgement: Fair Sleep: Fair Appetite: Fair Muscle strength/Tone: Normal Gait/Station: Normal
[2017-03-16] MEDS: NICOTINE 21 MG/24 HOURS TOPICAL PATCH TD SCH (10:05)
[2017-03-16] MEDS: PRENATAL VITAMINS W/ FOLIC ACID TABLET (FP) PO SCH (10:05)
== END 2017-03-16 10:35 | disposition home or self-care (01) | DRG 772 ==
LOC: YASAS 13:53 → Y5N 13:54
PROVIDERS: ADMIT Psychiatry & Neurology Psychiatry; ATTEND Psychiatry & Neurology Psychiatry
PROC: HZ42ZZZ Group Counseling for Substance Abuse Treatment, Cognitive-Behavioral (ICD-10-PCS; principal; 2017-02-17)
DX: F10.20 Alcohol dependence, uncomplicated (principal); F16.20 Hallucinogen dependence, uncomplicated; F12.20 Cannabis dependence, uncomplicated; F43.20 Adjustment disorder, unspecified; G47.00 Insomnia, unspecified

== ENCOUNTER 2020-09-07 13:31 | Inpatient (IN) | payer OTHER ==
--- OUTSIDE RECORDS SUMMARY | 2020-09-07 13:37 | XMS ---
:1965 Author Organization [facility] Support Name Relationship Address Phone UE Unavailable Unavailable Unavailable [address] [place], [place] [address] Re-disclosure Warning The records that you are about to access may contain information from federally- assisted alcohol or drug abuse programs. If such information is present, then the following federally mandated warning applies: This information has been disclosed to you from records protected by federal confidentiality rules (42 CFR part 2). The federal rules prohibit you from making any further disclosure of this information unless further disclosure is expressly permitted by the written consent of the person to whom it pertains or as otherwise permitted by 42 CFR part 2. A general authorization for the release of medical or other information is NOT sufficient for this purpose. The Federal rules restrict any use of the information to criminally investigate or prosecute any alcohol or drug abuse patient.The records that you are about to access may contain highly sensitive health information, the redisclosure of which is protected by Article 27-F of the [facility] Public Health law. If you continue you may haveaccess to information: Regarding HIV / AIDS; Provided by facilities licensed or operated by the [facility] Office of Mental Health; or Provided by the [facility] Office for People With Developmental Disabilities. If such information is present, then the following [facility] mandated warning applies: This information has been disclosed to you from confidential records which are protected by state law. State law prohibits you from making any further disclosure of this information without the specific written consent of the person to whom it pertains, or as otherwise permitted by law. Any unauthorized further disclosure in violation of state law may result in a fine or custodial sentence or both. A general authorization for the release of medical or other information is NOT sufficient authorization for further disclosure. Insurance Providers Payer name Policy type Policy ID Covered Covered constitution party's Policy P eloisa / Coverage constitution party ID relationship to [employer] Inf ormation type sifuentes VARGAS [id number] 500 HEALTH NON CAP VARGAS [id number] SP [id number] 500 HEALTH NON CAP
--- NOTE | 2020-09-07 14:22 | BHS.RME ---
Substance Use & Tx History - Substance Use History Alcohol Substance amount: one pint Frequency of use: Daily Substance route: Oral Date of Last Use: 09/07/20 Marijuana/Hashish Substance amount: $30 Frequency of use: Daily Substance route: Smoking Date of Last Use: 09/07/20 Nicotine Substance amount: one pack Frequency of use: Daily Substance route: Smoking Date of Last Use: 09/07/20 Synthetic Cannabinoid Substance amount: $100 Frequency of use: Daily Substance route: Smoking Date of Last Use: 09/07/20 Physical/Psych/Mental Status - Behavior General Behavior: Decreased activity Eye Contact: Normal - Cooperativeness Cooperativeness: Cooperative - Thinking Thought Processes: Tight Thought content: Future oriented - Physical Health Problems Is patient presently having any pain?: No Does patient presently have any injuries (include location): No Does patient currently have a fever: No CIWA Nausea/Vomitin Muscle Tremors: 4-Moderate,w/Arms Extend Anxiety: 3 Agitation: 2 Paroxysmal Sweats: No Perspiration Orientation: 2-Disoriented Date<2 days Tacttile Disturbances: 0-None Auditory Disturbances: 0-None Visual Disturbances: 0-None Headache: 0-None Present CIWA-Ar Total Score: 14
--- NOTE | 2020-09-07 17:28 | HP ---
CIWA Score Nausea/Vomitin Muscle Tremors: 5 Anxiety: 3 Agitation: 2 Paroxysmal Sweats: 2 Orientation: 1-Uncertain about Date Tacttile Disturbances: 0-None Auditory Disturbances: 0-None Visual Disturbances: 0-None Headache: 2-Mild CIWA-Ar Total Score: 18 - Admission Criteria [facility]ASAS Guidelines: Admission for Medically Managed Detox: Requires at least one of the followin. CIWA greater than 12 2. Seizures within the past 24 hours 3. Delirium tremens within the past 24 hours 4. Hallucinations within the past 24 hours 5. Acute intervention needed for co occurring medical disorder 6. Acute intervention needed for co occurring psychiatric disorder 7. Severe withdrawal that cannot be handled at a lower level of care (continued vomiting, continued diarrhea, abnormal vital signs) requiring intravenous medication and/or fluids 8. Admitting History and Physical - Smoking History Smoking history: Current every day smoker Have you smoked in the past 12 months: Yes Aproximately how many cigarettes per day: 20 - Alcohol/Substance Use Hx Alcohol Use: Yes (beer/vodka 2 pints daily use) Admission [facility] Chief Complaint: Alcohol withdrawal symptoms Allergies/Adverse Reactions: Allergies Allergy/AdvReac Type Severity Reaction Status Date / Time No Known Allergies Allergy Verified 09/07/20 17:50 History of Present Illness: 55 years old male with a long history of alcohol dependence is seeking admission to detox. His last admission for the period 02/13/2017 - 03/16/2017. He reports that he drinks 6 pints Vodka daily but this morning he drank a pint before coming to detox. He has medical history of asthma, psych. history of depression and denies suicidal ideation at this time. He reports + eye production counter, blackouts and alcohol related seizures. He is unemployed, lives alone and denies any legal issues Exam Limitations: Intoxication - Ebola screening Have you traveled outside of the country in the last 21 days: No Have you had contact with anyone from an Ebola affected area: No Have you been sick,other than usual withdrawal symptoms: No Do you have a fever: No - Review of Systems Constitutional: Chills, Loss of Appetite, Malaise, Night Sweats, Changes in sleep EENT: reports: Dental Problems, Other (right ear hearing difficulties) Respiratory: reports: No Symptoms reported Cardiac: reports: No Symptoms Reported GI: reports: Diarrhea (x 2), Nausea, Poor Appetite, Poor Fluid Intake, Abdominal cramping : reports: No Symptoms Reported Musculoskeletal: reports: Other (right leg pain) Integumentary: reports: Dryness, Flushing Neuro: reports: Headache, Tremors Endocrine: reports: No Symptoms Reported Hematology: reports: No Symptoms Reported Psychiatric: reports: Agitated, Anxious Other Systems: Reviewed and Negative Patient History - Patient Medical History Hx Anemia: No Hx Asthma: Yes Hx Chronic Obstructive Pulmonary Disease (COPD): No Hx Cancer: No Hx Cardiac Disorders: No Hx Congestive Heart Failure: No Hx Hypertension: No Hx Hypercholesterolemia: No Hx Pacemaker: No HX Cerebrovascular Accident: No Hx Seizures: Yes (Alcohol related seizure- last was 09/04/2020) Hx Diabetes: No Hx Gastrointestinal Disorders: No Hx Liver Disease: No Hx Genitourinary Disorders: No Hx Sexually Transmitted Disorders: No Hx Renal Disease (ESRD): No Hx Thyroid Disease: No Hx Human Immunodeficiency Virus (HIV): No (NEGATIVE 2019) Hx Hepatitis C: No Hx Depression: Yes Hx Suicide Attempt: No (Denies suicidal ideation at this time) Hx Bipolar Disorder: No Hx Schizophrenia: No - Patient Surgical History Past Surgical History: No Hx Neurologic Surgery: No Hx Cataract Extraction: No Hx Cardiac Surgery: No Hx Lung Surgery: No Hx Breast Biopsy: No Hx Abdominal Surgery: No Hx Appendectomy: No Hx Cholecystectomy: No Hx Genitourinary Surgery: No Hx Section: No Hx Orthopedic Surgery: No Anesthesia Reaction: No - PPD History Previous Implant?: Yes Documented Results: Negative w/proof Implanted On Prior [facility] Admission?: Yes Date: 02/15/17 Results: 0 mm. PPD to be Administered?: Yes - Reproductive History Patient is a Female of Child Bearing Age (11 -55 yrs old): No (Male) - Smoking Cessation Smoking history: Current every day smoker Have you smoked in the past 12 months: Yes Aproximately how many cigarettes per day: 20 Hx Chewing Tobacco Use: No Initiated information on smoking cessation: Yes 'Breaking Loose' booklet given: 09/07/20 - Substance & Tx. History Hx Alcohol Use: No Hx Substance Use: Yes Substance Use Type: Alcohol, Marijuana, Tranquilizers Hx Substance Use Treatment: Yes ([facility]) - Substances abused Alcohol Substance route: Oral Frequency: Daily Amount used: 6 Pints Vodka Age of first use: 14 Date of last use: 09/07/20 Admission Physical Exam [facility] - Physical General Appearance: Yes: Tremorous, Irritable, Anxious HEENTM: Yes: Within Normal Limits Respiratory: Yes: Lungs Clear, Normal Breath Sounds, No Respiratory Distress Neck: Yes: Within Normal Limits, Thyroid tenderness Breast: Yes: Breast Exam Deferred Cardiology: Yes: Tachycardia Abdominal: Yes: Normal Bowel Sounds Genitourinary: Yes: Within Normal Limits Back: Yes: Normal Inspection Musculoskeletal: Yes: Other (roght knee pain) Extremities: Yes: Tremors Neurological: Yes: Within Normal Limits Integumentary: Yes: Warm Lymphatic: Yes: Within Normal Limits - Diagnostic (1) Alcohol related seizure Current Visit: Yes Status: Chronic (2) Alcohol dependence with uncomplicated withdrawal Current Visit: Yes Status: Acute (3) Cannabis dependence Current Visit: Yes Status: Chronic (4) PCP dependence Current Visit: Yes Status: Chronic Cleared for Admission [facility] - Detox or Rehab [facility] Level of Care: Medically Managed Detox Regimen/Protocol: Librium Claeared for Rehab Admission: No Breathalyzer - Breathalyzer Breathalyzer: 0 Urine Drug Screen - Test Device Lot number: [id number] Expiration date: 03/07/22 - Control Is test valid?: Yes - Results Drug screen NEGATIVE: Yes Inpatient Rehab Admission - Rehab Decision to Admit Inpatient rehab admission?: No
[2020-09-07] MEDS ORDERED: IBUPROFEN 400 MG TABLET (FP) PO PRN (17:49)
[2020-09-07] MEDS ORDERED: MAG HYDROX/AL HYDROX/SIMETH 30 ML UNIT-DOSE CUP PO PRN (17:49)
[2020-09-07] MEDS ORDERED: NICOTINE POLACRILEX 2 MG GUM BUC PRN (17:49)
[2020-09-07] MEDS ORDERED: ONDANSETRON *ODT* 4 MG TABLET SL PRN (17:49)
[2020-09-07] MEDS ORDERED: MAGNESIUM CITRATE 300 ML BOTTLE PO PRN (17:49)
[2020-09-07] MEDS ORDERED: ACETAMINOPHEN 325 MG TABLET (FP) PO PRN ×2 (17:49)
[2020-09-07] MEDS ORDERED: BISMUTH SUBSALICYLATE 524 MG/30 ML UD PO PRN (17:49)
[2020-09-07] MEDS ORDERED: chlordiazePOXIDE HCL 25 MG CAPSULE PO PRN (17:49)
[2020-09-07] MEDS ORDERED: MAGNESIUM HYDROX 2400MG/30ML ORAL SUSPENSION 30 ML CUP PO PRN (17:49)
[2020-09-07] MEDS ORDERED: METHOCARBAMOL 500 MG TABLET PO PRN (17:49)
[2020-09-07] MEDS ORDERED: MENTHOL/PHENOL 1 EACH UD MM PRN (17:49)
--- OUTSIDE RECORDS SUMMARY | 2020-09-07 17:54 | XMS ---
:1965 Author Organization [facility] Support Name Relationship Address Phone UE Unavailable Unavailable Unavailable [address] [phone] [place], [place] [address] Re-disclosure Warning The records that you are [...] is protected by Article 27-F of the [facility] Public Health law. If you continue you may haveaccess to information: Regarding HIV / AIDS; Provided by facilities licensed or operated by the [facility] Office of Mental Health; or Provided by the [facility] Office for People With Developmental Disabilities. If such information is present, then the following [facility] mandated warning applies: This information has [...] law may result in a fine or penitentiary sentence or both. A general authorization for the release of medical or other information is NOT sufficient authorization for further disclosure. Insurance Providers Payer name Policy type Policy ID Covered Covered democrat's Policy P eloisa / Coverage democrat ID relationship to [employer]uent[employer] Inf ormation type sifuentes VARGAS [id number] 500 HEALTH NON CAP VARGAS [id number] SP [id number] 500 HEALTH NON CAP
[2020-09-07 18:05] VITALS: BMI 19.8
[2020-09-07] MEDS: chlordiazePOXIDE HCL 25 MG CAPSULE PO SCH (22:53)
[2020-09-07] MEDS: MELATONIN 5 MG TABLETS PO SCH (22:53)
[2020-09-07] MEDS: THIAMINE HCL 100 MG TABLET (FP) PO SCH (22:53)
[2020-09-08] MEDS: chlordiazePOXIDE HCL 25 MG CAPSULE PO SCH ×4 (07:08→23:04)
--- NOTE | 2020-09-08 10:14 | PN ---
S CIWA - CIWA Score Nausea/Vomitin-No Nausea/No Vomiting Muscle Tremors: 2 Anxiety: 3 Agitation: 0-Normal Activity Paroxysmal Sweats: 3 Orientation: 0-Oriented Tacttile Disturbances: 0-None Auditory Disturbances: 0-None Visual Disturbances: 0-None Headache: 2-Mild CIWA-Ar Total Score: 10 BHS Progress Note (SOAP) Subjective: c/o sweats, anxiety, shakes, headache. Objective: 09/08/20 10:12 Vital Signs 09/08/20 09/08/20 06:16 08:50 Temperature 98.1 F 98.1 F Pulse Rate 75 91 H Respiratory 18 18 Rate Blood Pressure 101/66 124/76 O2 Sat by Pulse 95 Oximetry (%) Labs pending. 09/08/20 16:34 Laboratory Last Values WBC 8.5 K/mm3 (4.0-10.0) 09/08/20 07:30 RBC 3.93 M/mm3 (4.00-5.60) L 09/08/20 07:30 Hgb 14.2 GM/dL (11.7-16.9) 09/08/20 07:30 Hct 40.9 % (35.4-49) 09/08/20 07:30 MCV 104.2 fl (80-96) H 09/08/20 07:30 MCH 36.2 pg (25.7-33.7) H 09/08/20 07:30 MCHC 34.7 g/dl (32.0-35.9) 09/08/20 07:30 RDW 14.3 % (11.9-15.9) 09/08/20 07:30 Plt Count 211 K/MM3 (134-434) 09/08/20 07:30 MPV 9.2 fl (7.5-11.1) 09/08/20 07:30 Sodium 141 mmol/L (136-145) 09/08/20 07:30 Potassium 4.0 mmol/L (3.5-5.1) 09/08/20 07:30 Chloride 109 mmol/L (98-107) H 09/08/20 07:30 Carbon Dioxide 26 mmol/L (21-32) 09/08/20 07:30 Anion Gap 5 MMOL/L (8-16) L 09/08/20 07:30 BUN 10.7 mg/dL (7-18) 09/08/20 07:30 Creatinine 0.8 mg/dL (0.55-1.3) 09/08/20 07:30 Est GFR (CKD-EPI)AfAm 115.74 09/08/20 07:30 Est GFR (CKD-EPI)NonAf 99.86 09/08/20 07:30 Random Glucose 75 mg/dL (74-106) 09/08/20 07:30 Calcium 8.6 mg/dL (8.5-10.1) 09/08/20 07:30 Total Bilirubin 0.9 mg/dL (0.2-1) 09/08/20 07:30 AST 16 U/L (15-37) 09/08/20 07:30 ALT 18 U/L (13-61) 09/08/20 07:30 Alkaline Phosphatase 38 U/L (45-117) L 09/08/20 07:30 Total Protein 6.3 g/dl (6.4-8.2) L 09/08/20 07:30 Albumin 3.2 g/dl (3.4-5.0) L 09/08/20 07:30 Syphilis Serology Reactive (NONREACTIVE) A* 09/08/20 07:30 RPR Titer Reactive 1:1 (NONREACTIVE) H D 09/08/20 07:30 Labs noted. Assessment: AOX3, in no acute respiratory distress. Full ROM, ambulating in the unit. Withdrawal symptoms. Plan: continue detox.
[2020-09-08] MEDS: PRENATAL VITAMINS W/ FOLIC ACID TABLET (FP) PO SCH (10:22)
[2020-09-08] MEDS: NICOTINE 21 MG/24 HOURS TOPICAL PATCH TD SCH (10:22)
[2020-09-08 11:55] LABS: HEMATOCRIT 40.9 % (35.4-49); HEMOGLOBIN 14.2 GM/dL (11.7-16.9); MCH 36.2 pg (25.7-33.7); MCHC 34.7 g/dl (32.0-35.9); MEAN CELL VOLUME 104.2 fl (80-96); MEAN PLT VOLUME 9.2 fl (7.5-11.1); PLATELET COUNT 211 K/MM3 (134-434); RBC 3.93 M/mm3 (4.00-5.60); RDW 14.3 % (11.9-15.9); WHITE BLOOD COUNT 8.5 K/mm3 (4.0-10.0)
[2020-09-08 12:14] LABS: ALBUMIN 3.2 g/dl (3.4-5.0); BILIRUBIN,TOTAL 0.9 mg/dL (0.2-1); BLOOD UREA NITROGEN 10.7 mg/dL (7-18); CALCIUM 8.6 mg/dL (8.5-10.1); CREATININE 0.8 mg/dL (0.55-1.3); TOT PROT 6.3 g/dl (6.4-8.2)
[2020-09-08] MEDS: MELATONIN 5 MG TABLETS PO SCH (23:05)
[2020-09-08] MEDS: THIAMINE HCL 100 MG TABLET (FP) PO SCH (23:05)
[2020-09-09] MEDS: chlordiazePOXIDE HCL 25 MG CAPSULE PO SCH ×4 (05:22→22:42)
--- NOTE | 2020-09-09 07:14 | EKG ---
Test Reason : Blood Pressure : / mmHG Vent. Rate : 063 BPM Atrial Rate : 063 BPM P-R Int : 108 ms QRS Dur : 080 ms QT Int : 386 ms P-R-T Axes : 046 039 056 degrees QTc Int : 395 ms SINUS RHYTHM WITH SHORT SC OTHERWISE NORMAL ECG WHEN COMPARED WITH ECG OF 13-FEB-2017 14:11, NO SIGNIFICANT CHANGE WAS FOUND Confirmed by AGNES BARNETT MD ([id number]) on 09/09/2020 7:13:22 AM Referred By: Confirmed By:AGNES BARNETT MD
[2020-09-09] MEDS: NICOTINE 21 MG/24 HOURS TOPICAL PATCH TD SCH (10:30)
[2020-09-09] MEDS: PRENATAL VITAMINS W/ FOLIC ACID TABLET (FP) PO SCH (10:30)
--- NOTE | 2020-09-09 10:47 | PN ---
S CIWA - CIWA Score Nausea/Vomitin-No Nausea/No Vomiting Muscle Tremors: 2 Anxiety: 2 Agitation: 1-Slight > Activity Paroxysmal Sweats: No Perspiration Orientation: 0-Oriented Tacttile Disturbances: 0-None Auditory Disturbances: 0-None Visual Disturbances: 2-Mild Sensitivity Headache: 2-Mild CIWA-Ar Total Score: 9 S Progress Note (SOAP) Subjective: 55 years old male was admitted on 09/07/20 for alcohol withdrawal sx management treating with librium detox regiment feels ok today bmi 19.8 ensure 120 ml po tid with meals mr galaviz determines to maintain sober prefers to go to [facility] for alcohol abuse treatment Objective: 09/09/20 10:49 Vital Signs - 24 hr 09/08/20 09/08/20 09/08/20 12:51 16:36 20:21 Temperature 97.8 F 97.7 F Pulse Rate 80 62 Respiratory 18 16 Rate Blood Pressure 121/76 110/64 O2 Sat by Pulse 100 99 Oximetry (%) 09/08/20 09/09/20 09/09/20 21:25 07:00 08:24 Temperature 97.7 F 98.1 F 97.5 F L Pulse Rate 68 62 67 Respiratory 17 18 18 Rate Blood Pressure 110/77 99/77 116/77 O2 Sat by Pulse 98 98 Oximetry (%) Laboratory Tests 09/08/20 09/08/20 09/08/20 07:30 07:30 07:30 WBC 8.5 RBC 3.93 L Hgb 14.2 Hct 40.9 MCV 104.2 H MCH 36.2 H MCHC 34.7 RDW 14.3 Plt Count 211 MPV 9.2 Sodium 141 Potassium 4.0 Chloride 109 H Carbon Dioxide 26 Anion Gap 5 L BUN 10.7 Creatinine 0.8 Est GFR (CKD-EPI)AfAm 115.74 Est GFR (CKD-EPI)NonAf 99.86 Random Glucose 75 Calcium 8.6 Total Bilirubin 0.9 AST 16 ALT 18 Alkaline Phosphatase 38 L Total Protein 6.3 L Albumin 3.2 L Syphilis Serology Reactive A* RPR Titer 09/08/20 07:30 WBC RBC Hgb Hct MCV MCH MCHC RDW Plt Count MPV Sodium Potassium Chloride Carbon Dioxide Anion Gap BUN Creatinine Est GFR (CKD-EPI)AfAm Est GFR (CKD-EPI)NonAf Random Glucose Calcium Total Bilirubin AST ALT Alkaline Phosphatase Total Protein Albumin Syphilis Serology RPR Titer Reactive 1:1 H D syphilis contacted treated Assessment: 09/09/20 10:51 alcohol withdrawal Plan: librium regiment
[2020-09-09] MEDS: MELATONIN 5 MG TABLETS PO SCH (22:42)
[2020-09-09] MEDS: THIAMINE HCL 100 MG TABLET (FP) PO SCH (22:42)
[2020-09-10] MEDS ORDERED: chlordiazePOXIDE HCL 10 MG CAPSULE PO PRN
[2020-09-10] MEDS: chlordiazePOXIDE HCL 10 MG CAPSULE PO SCH ×4 (05:52→22:18)
--- NOTE | 2020-09-10 09:06 | PN ---
[facility] CIWA - CIWA Score Nausea/Vomitin-Mild Nausea/No Vomiting Muscle Tremors: 2 Anxiety: 2 Agitation: 2 Paroxysmal Sweats: No Perspiration Orientation: 0-Oriented Tacttile Disturbances: 1-Very Mild Itch/Numbness Auditory Disturbances: 0-None Visual Disturbances: 0-None Headache: 0-None Present CIWA-Ar Total Score: 8 BHS Progress Note (SOAP) Subjective: alert,irritable,anxious,interrupted sleep,anxious,aching pain Objective: 09/10/20 09:59 Vital Signs Temperature 98.2 F 09/10/20 06:47 Pulse Rate 60 09/10/20 06:47 Respiratory Rate 18 09/10/20 06:47 Blood Pressure 100/60 09/10/20 06:47 O2 Sat by Pulse Oximetry (%) 98 09/10/20 06:47 Assessment: 09/10/20 09:59 withdrawal symptom Plan: continue detox librium regimen,encourage fluid
[2020-09-10] MEDS: PRENATAL VITAMINS W/ FOLIC ACID TABLET (FP) PO SCH (10:06)
[2020-09-10] MEDS: NICOTINE 21 MG/24 HOURS TOPICAL PATCH TD SCH (10:07)
[2020-09-10] MEDS: MELATONIN 5 MG TABLETS PO SCH (22:18)
[2020-09-10] MEDS: THIAMINE HCL 100 MG TABLET (FP) PO SCH (22:18)
[2020-09-11] MEDS: chlordiazePOXIDE HCL 10 MG CAPSULE PO SCH ×2 (07:07→19:02)
--- NOTE | 2020-09-11 08:49 | PN ---
[facility] CIWA - CIWA Score Nausea/Vomitin-Mild Nausea/No Vomiting Muscle Tremors: 2 Anxiety: 2 Agitation: 1-Slight > Activity Paroxysmal Sweats: No Perspiration Orientation: 0-Oriented Tacttile Disturbances: 0-None Auditory Disturbances: 0-None Visual Disturbances: 0-None Headache: 1-Very Mild CIWA-Ar Total Score: 7 S Progress Note (SOAP) Subjective: alert,irritable,anxious,interrupted sleep,aching pain, Objective: 09/11/20 11:18 Vital Signs Temperature 96.4 F L 09/11/20 08:39 Pulse Rate 60 09/11/20 08:39 Respiratory Rate 18 09/11/20 08:39 Blood Pressure 99/56 L 09/11/20 08:39 O2 Sat by Pulse Oximetry (%) 99 09/11/20 06:22 09/11/20 11:19 Laboratory Last Values WBC 8.5 K/mm3 (4.0-10.0) 09/08/20 07:30 RBC 3.93 M/mm3 (4.00-5.60) L 09/08/20 07:30 Hgb 14.2 GM/dL (11.7-16.9) 09/08/20 07:30 Hct 40.9 % (35.4-49) 09/08/20 07:30 MCV 104.2 fl (80-96) H 09/08/20 07:30 MCH 36.2 pg (25.7-33.7) H 09/08/20 07:30 MCHC 34.7 g/dl (32.0-35.9) 09/08/20 07:30 RDW 14.3 % (11.9-15.9) 09/08/20 07:30 Plt Count 211 K/MM3 (134-434) 09/08/20 07:30 MPV 9.2 fl (7.5-11.1) 09/08/20 07:30 Sodium 141 mmol/L (136-145) 09/08/20 07:30 Potassium 4.0 mmol/L (3.5-5.1) 09/08/20 07:30 Chloride 109 mmol/L (98-107) H 09/08/20 07:30 Carbon Dioxide 26 mmol/L (21-32) 09/08/20 07:30 Anion Gap 5 MMOL/L (8-16) L 09/08/20 07:30 BUN 10.7 mg/dL (7-18) 09/08/20 07:30 Creatinine 0.8 mg/dL (0.55-1.3) 09/08/20 07:30 Est GFR (CKD-EPI)AfAm 115.74 09/08/20 07:30 Est GFR (CKD-EPI)NonAf 99.86 09/08/20 07:30 Random Glucose 75 mg/dL (74-106) 09/08/20 07:30 Calcium 8.6 mg/dL (8.5-10.1) 09/08/20 07:30 Total Bilirubin 0.9 mg/dL (0.2-1) 09/08/20 07:30 AST 16 U/L (15-37) 09/08/20 07:30 ALT 18 U/L (13-61) 09/08/20 07:30 Alkaline Phosphatase 38 U/L (45-117) L 09/08/20 07:30 Total Protein 6.3 g/dl (6.4-8.2) L 09/08/20 07:30 Albumin 3.2 g/dl (3.4-5.0) L 09/08/20 07:30 Syphilis Serology Reactive (NONREACTIVE) A* 09/08/20 07:30 RPR Titer Reactive 1:1 (NONREACTIVE) H D 09/08/20 07:30 COVID-19 (SKYE) Not detected (Not Detected) 09/07/20 18:10 treated for syphilis before Assessment: 09/11/20 11:19 withdrawal symptom Plan: continue detox librium regimen,discharge in am
[2020-09-11] MEDS: PRENATAL VITAMINS W/ FOLIC ACID TABLET (FP) PO SCH (10:20)
[2020-09-11] MEDS: NICOTINE 21 MG/24 HOURS TOPICAL PATCH TD SCH (10:20)
[2020-09-11] MEDS: THIAMINE HCL 100 MG TABLET (FP) PO SCH (22:11)
[2020-09-11] MEDS: MELATONIN 5 MG TABLETS PO SCH (22:11)
[2020-09-12] MEDS ORDERED: chlordiazePOXIDE HCL 10 MG CAPSULE PO ONE (05:00)
[2020-09-12 09:06] VITALS: BP 93/62; PULSE 63; TEMP 98
--- NOTE | 2020-09-12 09:26 | PN ---
[facility] CIWA - CIWA Score Nausea/Vomitin-No Nausea/No Vomiting Muscle Tremors: None Anxiety: 1-Mildly Anxious Agitation: 0-Normal Activity Paroxysmal Sweats: No Perspiration Orientation: 0-Oriented Tacttile Disturbances: 0-None Auditory Disturbances: 0-None Visual Disturbances: 0-None Headache: 0-None Present CIWA-Ar Total Score: 1 S Progress Note (SOAP) Subjective: alert,no complaint Objective: 09/12/20 09:25 Vital Signs Temperature 98.0 F 09/12/20 08:40 Pulse Rate 63 09/12/20 08:40 Respiratory Rate 18 09/12/20 08:40 Blood Pressure 93/62 09/12/20 08:40 O2 Sat by Pulse Oximetry (%) 99 09/12/20 06:23 Assessment: 09/12/20 09:25 detox completed,no withdrawal symptom Plan: stable for discharge to day,follow up with after care program as arrangement rehab
--- NOTE | 2020-09-12 09:28 | DS ---
[facility] Detox Discharge Summary Admission Date: 09/07/20 Discharge Date: 09/12/20 - History Present History: Alcohol Dependence, Cannabis Dependence Additional Comments: alert,oriented x 3 ambulation on the unit lung clear on auscultation bilaterally abdomen soft,no pain,no tenderness no edema of legs detox completed no withdrawal symptom stable for discharge today follow up with after care [facility] arrangement total time of discharge 35 minutes Pertinent Past History: alcohol related seizure history of syphilis treated pcp abuse - Physical Exam Results Vital Signs: Vital Signs Temperature 98.0 F 09/12/20 08:40 Pulse Rate 63 09/12/20 08:40 Respiratory Rate 18 09/12/20 08:40 Blood Pressure 93/62 09/12/20 08:40 O2 Sat by Pulse Oximetry (%) 99 09/12/20 06:23 Pertinent Admission Physical Exam Findings: withdrawal signs and symptom Laboratory Last Values WBC 8.5 K/mm3 (4.0-10.0) 09/08/20 07:30 RBC 3.93 M/mm3 (4.00-5.60) L 09/08/20 07:30 Hgb 14.2 GM/dL (11.7-16.9) 09/08/20 07:30 Hct 40.9 % (35.4-49) 09/08/20 07:30 MCV 104.2 fl (80-96) H 09/08/20 07:30 MCH 36.2 pg (25.7-33.7) H 09/08/20 07:30 MCHC 34.7 g/dl (32.0-35.9) 09/08/20 07:30 RDW 14.3 % (11.9-15.9) 09/08/20 07:30 Plt Count 211 K/MM3 (134-434) 09/08/20 07:30 MPV 9.2 fl (7.5-11.1) 09/08/20 07:30 Sodium 141 mmol/L (136-145) 09/08/20 07:30 Potassium 4.0 mmol/L (3.5-5.1) 09/08/20 07:30 Chloride 109 mmol/L (98-107) H 09/08/20 07:30 Carbon Dioxide 26 mmol/L (21-32) 09/08/20 07:30 Anion Gap 5 MMOL/L (8-16) L 09/08/20 07:30 BUN 10.7 mg/dL (7-18) 09/08/20 07:30 Creatinine 0.8 mg/dL (0.55-1.3) 09/08/20 07:30 Est GFR (CKD-EPI)AfAm 115.74 09/08/20 07:30 Est GFR (CKD-EPI)NonAf 99.86 09/08/20 07:30 Random Glucose 75 mg/dL (74-106) 09/08/20 07:30 Calcium 8.6 mg/dL (8.5-10.1) 09/08/20 07:30 Total Bilirubin 0.9 mg/dL (0.2-1) 09/08/20 07:30 AST 16 U/L (15-37) 09/08/20 07:30 ALT 18 U/L (13-61) 09/08/20 07:30 Alkaline Phosphatase 38 U/L (45-117) L 09/08/20 07:30 Total Protein 6.3 g/dl (6.4-8.2) L 09/08/20 07:30 Albumin 3.2 g/dl (3.4-5.0) L 09/08/20 07:30 Syphilis Serology Reactive (NONREACTIVE) A* 09/08/20 07:30 RPR Titer Reactive 1:1 (NONREACTIVE) H D 09/08/20 07:30 COVID-19 (SKYE) Not detected (Not Detected) 09/07/20 18:10 treated for syphilis before Vital Signs Temperature 98.0 F 09/12/20 08:40 Pulse Rate 63 09/12/20 08:40 Respiratory Rate 18 09/12/20 08:40 Blood Pressure 93/62 09/12/20 08:40 O2 Sat by Pulse Oximetry (%) 99 09/12/20 06:23 - Treatment Hospital Course: Detox Protocol Followed, Detoxed Safely, Responded well, Discharged Condition Good, Rehab Referral Accepted Patient has Accepted a Re[facility] Referral to: [facility] - Medication Discharge Medications: Ambulatory Orders NK [No Known Home Medication] 02/13/17 - Diagnosis (1) Alcohol dependence with uncomplicated withdrawal Current Visit: Yes Status: Acute (2) PCP (phencyclidine) abuse Current Visit: Yes Status: Acute (3) Syphilis contact, treated Current Visit: Yes Status: Acute (4) Cannabis dependence Current Visit: Yes Status: Chronic (5) Alcohol related seizure Current Visit: Yes Status: Acute - AMA Did Patient Leave Against Medical Advice: No
[2020-09-12] MEDS: PRENATAL VITAMINS W/ FOLIC ACID TABLET (FP) PO SCH (10:48)
[2020-09-12] MEDS: NICOTINE 21 MG/24 HOURS TOPICAL PATCH TD SCH (10:48)
== END 2020-09-12 11:56 | disposition other institution (70) | DRG 775 ==
LOC: YASAS 13:31 → Y3N 17:49
PROVIDERS: ADMIT Allergy & Immunology; ATTEND Allergy & Immunology
PROC: HZ2ZZZZ Detoxification Services for Substance Abuse Treatment (ICD-10-PCS; principal; 2020-09-07)
DX: F10.230 Alcohol dependence with withdrawal, uncomplicated (principal); F12.20 Cannabis dependence, uncomplicated; F16.10 Hallucinogen abuse, uncomplicated; F19.20 Other psychoactive substance dependence, uncomplicated; F17.210 Nicotine dependence, cigarettes, uncomplicated; J45.909 Unspecified asthma, uncomplicated; J82.83 Eosinophilic asthma; G40.509 Epileptic seizures related to external causes, not intractable, without status epilepticus; H91.91 Unspecified hearing loss, right ear; M79.604 Pain in right leg; Z86.19 Personal history of other infectious and parasitic diseases; Z56.0 Unemployment, unspecified
CPT/HCPCS: 36415; 80053; 85027; 86593; 86780; 93005; 93010; C9803; U0003